=== PATIENT | male | born 1965 | race Caucasian/White ===

== ENCOUNTER 2017-01-21 10:36 | Day surgery (SDC) | payer OTHER ==
[~2017-01-21] VITALS: Ht 182.9 cm; Wt 105.2 kg
[2017-01-21] MEDS ORDERED: EPINEPHrine 0.1 mg/mL 10 mL Syringe ONE (10:37)
[2017-01-21] MEDS ORDERED: 0.9% Sodium Chloride 1,000 ML IV SCH (11:00)
[2017-01-21 11:29] VITALS: BP 126/80; PULSE 101; RESP 16; O2SAT 93
[2017-01-21] MEDS ORDERED: DOXY25TA46 PO (11:29)
[2017-01-21] MEDS ORDERED: MULT-666 PO (11:29)
[2017-01-21] MEDS ORDERED: Lidocaine PF 2% 10 mL Inj ONE (11:42)
[2017-01-21] MEDS ORDERED: fentaNYL-PF 50 mCg/mL 2 mL Inj IVPUSH PRN (12:00)
[2017-01-21] MEDS ORDERED: Lidocaine PF 2% 5 mL Inj MUC_MEMBRM SCH (12:00)
[2017-01-21] MEDS ORDERED: Lidocaine PF 2% 5 mL Inj MUC_MEMBRM PRN (12:00)
[2017-01-21] MEDS ORDERED: Lidocaine Topical 2% 30 mL Jelly MUC_MEMBRM PRN (12:00)
[2017-01-21 13:09] VITALS: BP 116/71; PULSE 106; RESP 20; O2SAT 93
[2017-01-21 13:42] VITALS: BP 120/70; PULSE 103; RESP 20; O2SAT 95
--- NOTE | 2017-01-21 14:12 | DRSVH ---
PROCEDURE: X-RAY CHEST ONE VIEW, PORTABLE ([id number]) INDICATIONS: post procedure TECHNIQUE: One view of the chest was acquired. COMPARISON: [facility], , XR CHEST 2VW, 01/05/2017, 11:38. FINDINGS: Surgical changes and devices: None. Lungs and pleura: No pleural effusions or pneumothorax. Subtle increased opacification noted in the right upper lobe parahilar lung may be related to recent bronchoscopy washings. Focal opacities in th e right midlung and left upper lobe were decreased in conspicuity compared to prior examination obtai elvis 01/05/17. Mediastinum: Mediastinal contours appear normal. Heart size is normal. Bones and chest wall: No suspicious bony lesions. Overlying soft tissues appear unremarkable. IMPRESSION: No pneumothorax following bronchoscopy. Dictated by: Fina Syed MD, PhD on 01/21/2017 at 14:08 Approved by: Fina Syed MD, PhD on 01/21/2017 at 14:10
--- NOTE | 2017-01-21 14:30 | ENDO ---
[address] [address] ENDOSCOPY PROCEDURE PATIENT: AMPARO CROWDER : 1965 MR#: [id number] ADMIT: 01/21/2017 JOB ID: [id number] DATE OF SERVICE: 01/21/2017 PROCEDURE: Bronchoscopy. SURGEON: Priscilla Swanson MD, pulmonary medicine. INDICATION: Bilateral pulmonary nodules, fever, mediastinal lymphadenopathy. Informed consent was obtained from the patient after risks and benefits of the procedure were discussed. DESCRIPTION OF PROCEDURE: The patient was asked to gargle lidocaine. Additional lidocaine was administered via atomizer. IV sedation was then administered and then, the scope was passed through the mouth. Epiglottis and vocal cords were visualized and normal. Additional lidocaine was administered here, and trachea was entered through the vocal cords. Trachea was normal in appearance. Dean was normal. A complete left and right-sided airway evaluation was performed. Left-sided airways appeared normal, except for some erythema along the left upper lobe mucosa that was nonspecific without any masses or irregularities. A complete right-sided evaluation revealed the right upper lobe dean to be somewhat splayed with slight erythema that extended into the right upper lobe anterior segment airway. Remaining airways were normal. We then proceeded to do bronchoalveolar lavage in the anterior segment of the right upper lobe. Then, 120 cc of saline was administered with a 50+ cc of clear fluid returned. We then did a lavage in the posterior segment of the left lower lobe with 150 cc administered and only about 20 cc return obtained. We proceeded to do biopsies along the right upper lobe dean and the right upper lobe anterior segment airway. Most of these were under direct visualization. At least a dozen samples were obtained. The patient was coughing quite a bit and required a significant amount of sedation throughout. There was some bleeding that subsided with topical epinephrine administration. FINDINGS: Splayed right upper lobe dean without any mass, some mucosal erythema at the right upper lobe dean and right upper lobe anterior segment airway. No mucosal irregularities or masses. SAMPLES: Right upper lobe anterior segment and left lower lobe posterior segment lavage was pooled and sent for bacterial, fungal, AFB cultures, and cytology. Right upper lobe dean and anterior segment airway endobronchial biopsies x12 at least were collected and sent for pathology. COMPLICATIONS: Significant coughing. ESTIMATED BLOOD LOSS: Less than 10 cc. MEDICATIONS: 1. Versed 8 mg. 2. Fentanyl 150 mg. 3. Topical epinephrine 4 cc. 4. Lidocaine about 20 cc. Postprocedure chest x-ray is pending. I told the patient I would call him next week with results.
--- NOTE | 2017-01-22 11:35 | PATH ---
SURGICAL PATHOLOGY Attending Physician:Priscilla Swanson MD CASE STATUS: Signed Out PATIENT NAME: AMPARO CROWDER PID: [id number] : 1965 DATE COLLECTED:01/21/2017 22:31 SPECIMEN: Lung Biopsy CLINICAL HISTORY: PULMONARY NODULES, LYMPHADENOPATHY, 51 YEAR OLD MALE WITH FEVERS, RULE OUT INFECTION OR MALIGNANCY 1). RIGHT UPPER LOBE BIOPSY FINAL DIAGNOSIS: 1.RIGHT UPPER LOBE CORE BIOPSY: BENIGN BRONCHIAL MUCOSA WITH MILD ACTIVE INFLAMMATION AND HEMORRHAGE. NO GRANULOMAS OR VIRAL INCLUSIONS IDENTIFIED. NO EVIDENCE OF MALIGNANCY. ICD10 CODE R91.8 NOTE: As part of a routine quality engineer, Dr. Luis Angel Perdomo has also reviewed this case and agrees with the diagnosis. GROSS DESCRIPTION: The specimen is received in one formalin filled container labeled with the patient's name, sublabeled "right upper lobe" and consists of multiple light milligan portions of rogers-milligan tissue which aggregate to 0.6 x 0.6 x 0.2 CM. The specimen is entirely submitted in one cassette. 01/21/2017 DAC MICRO DESCRIPTION: See diagnosis. ICD-9 CODES: CPT CODES: 1: 63919 Electronically Signed Out Mily Morin MD [facility] [address], [place] [address] Technical component performed at [facility], [facility] [address], [place], [address]
--- NOTE | 2017-01-25 15:07 | PATH ---
SURGICAL PATHOLOGY Attending Physician:Priscilla Swanson MD CASE STATUS: Signed Out PATIENT NAME: AMPARO CROWDER PID: [id number] : 1965 DATE COLLECTED:01/21/2017 00:00 SPECIMEN: Bronch Wash CLINICAL HISTORY: Bronch Wash ICD-10 not given FINAL DIAGNOSIS: 1.BRONCHIAL WASHING FOR CYTOLOGY (ONE THINPREP SLIDE AND ONE CELL BLOCK): NEGATIVE FOR MALIGNANT CELLS. MACROPHAGES AND INFLAMMATORY CELLS ARE PRESENT. ICD10 CODE C34 GROSS DESCRIPTION: Received fresh on 01/22/2017 is approximately 40 cc of clear yellow fluid. Prepared are one cell block and one ThinPrep slide. Vo ICD-9 CODES: CPT CODES: 1: 53471, 79991 Electronically Signed Out Liam Perdomo MD [facility] [address], [place] [address] Technical component performed at [facility], [facility] [address], [place], [address]
== END 2017-01-21 23:59 | disposition home or self-care (01) ==
LOC: END 10:36
PROVIDERS: ATTEND Internal Medicine Critical Care Medicine
PROC: 0B948ZX Drainage of Right Upper Lobe Bronchus, Via Natural or Artificial Opening Endoscopic, Diagnostic (ICD-10-PCS; principal; 2017-01-21 12:00)
PROC: 0BB48ZX Excision of Right Upper Lobe Bronchus, Via Natural or Artificial Opening Endoscopic, Diagnostic (ICD-10-PCS; 2017-01-21 12:00)
PROC: 0BB28ZX Excision of Carina, Via Natural or Artificial Opening Endoscopic, Diagnostic (ICD-10-PCS; 2017-01-21 12:00)
DX: R91.8 Other nonspecific abnormal finding of lung field (principal); R50.9 Fever, unspecified; R59.0 Localized enlarged lymph nodes
CPT/HCPCS: 31624; 31625; 71010; 87070; 87101; 87147; 87205; 87206; 87278; 87556; 88305; 99153; G0463; G0500; J0171; J2250; J3010; J7030